=== PATIENT | female | born 1970 | race Caucasian/White ===

== ENCOUNTER 2022-03-19 14:59 | Emergency (ER) | payer OTHER, SELFPAY ==
[2022-03-19 15:05] VITALS: BP 140/81; PULSE 88; RESP 18; TEMP 36.7; O2SAT 99; BMI 21.9
--- NOTE | 2022-03-19 15:10 | DI.RAD.S_ITS ---
PROCEDURE: XR CHEST 1V INDICATIONS: chest pain TECHNIQUE: One view of the chest was acquired. COMPARISON: None. FINDINGS: Surgical changes and devices: None. Lungs and pleura: Lungs are clear. No pleural effusions or pneumothorax. Mediastinum: Mediastinal contours appear normal. Heart size is normal. Bones and chest wall: No suspicious bony lesions. Overlying soft tissues appear unremarkable. IMPRESSION: Normal for age, source of current chest pain symptoms is not seen. Dictated by: Aniket Moreira M.D. on 03/19/2022 at 15:53 Approved by: Aniket Moreira M.D. on 03/19/2022 at 15:53
[2022-03-19 16:05] LABS: Add Manual Diff / Slide Review NO; Basophils Absolute Auto 0 /uL (0-100); Basophils Percent Auto 0.4 % (0-2); Eosinophils Absolute Auto 100 /uL (0-450); Eosinophils Percent Auto 1.1 % (2-4); Hematocrit 40.5 % (36-46); Hemoglobin 14.1 g/dL (12.0-16.0); Lymphocytes Absolute Auto 1200 /uL (1100-4500); Mean Corpuscular Hemoglobin 32.1 PG (26-34); Mean Corpuscular Volume 91.9 fL (80-100); Monocytes Absolute Auto 400 /uL (0-900); Neutrophils Absolute Auto 4700 /uL (1500-7000); Neutrophils Percent Auto 73.5 % (50-75); Platelet Count 273 X10^3/uL (150-400); Red Cell Distribution Width 12.8 % (11.6-14.8); White Blood Cell Count 6.4 X10^3/uL (4.5-11.0)
[2022-03-19 16:16] LABS: Alanine Aminotransferase 22 IU/L (<35); Albumin 4.7 g/dL (3.5-5.0); Albumin Globulin Ratio 1.5 (1.0-2.8); Alkaline Phosphatase 72 U/L (38-126); Aspartate Aminotransferase 27 IU/L (14-36); BUN Creatinine Ratio 24.2 (6-22); Bilirubin Total 0.4 mg/dL (0.2-1.3); Blood Urea Nitrogen 15 mg/dL (7-17); Calcium 9.2 mg/dL (8.4-10.2); Carbon Dioxide 27 mmol/L (22-32); Chloride 105 mmol/L (98-107); Creatine Kinase 192 U/L (30-135); Estimated Glomerular Filt Rate > 60 mL/min (>60); Globulin 3.1 g/dL (1.7-4.1); Glucose 102 mg/dL (70-100); HEMOLYSIS < 15 (0-50); Lipase 78 U/L (23-300); Magnesium 2.2 mg/dL (1.6-2.3); Potassium 3.6 mmol/L (3.4-5.1); Sodium 141 mmol/L (137-145); Total Protein 7.8 g/dL (6.3-8.2)
[2022-03-19 16:26] LABS: Troponin I < 0.012 ng/mL (0.01-0.034)
[2022-03-19 16:30] LABS: CKMB % Relative Index 0.7 % (1.5-5.0); Creatine Kinase MB 1.42 ng/mL (<2.37)
[2022-03-19 16:36] VITALS: PULSE 70; RESP 27; O2SAT 100
--- NOTE | 2022-03-19 16:37 | ED.ARRPALP ---
HPI - Arrhythmia/Palpitations General Chief Complaint: Arrhythmia/Palpitations Stated Complaint: Heart fluttering, Almost passed out Time Seen by Provider: 03/19/22 16:25 Source: patient Mode of arrival: Ambulatory History of Present Illness HPI narrative: Patient is a 52-year-old female who many years has had occasional episodes with palpitation. She feels like recently it has become more pronounced. States that earlier today while she was at work she was squatting down. She is a statistical methods teacher. She stood up and became lightheaded. She denied any specific palpitations at that time. No chest pain. She did not pass out. She currently is not having symptoms. She states that her symptoms have become more pronounced specifically at night. He is never had chest pain or lightheaded in the past. Has not been evaluated for these symptoms prior to today. Review of Systems Constitutional Constitutional: Reports system reviewed and no additional complaints, except as documented Cardiovascular Cardiovascular: Reports system reviewed and no additional complaints, except as documented Respiratory Respiratory: Reports system reviewed and no additional complaints, except as documented Gastrointestinal Gastrointestinal: Reports system reviewed and no additional complaints, except as documented Neurologic Neurologic: Reports system reviewed and no additional complaints, except as documented Hematologic/Lymphatic On Anticoagulants: No Patient History Social History (Updated 03/19/22 @ 17:57 by Get Read DO) lives independently: Yes Exam Initial Vital Signs Initial Vital Signs: Vital Signs Temperature 98.1 F 03/19/22 15:05 Pulse Rate 88 03/19/22 15:05 Respiratory Rate 18 03/19/22 15:05 Blood Pressure 140/81 03/19/22 15:05 Pulse Oximetry 99 03/19/22 15:05 Oxygen Delivery Method 03/19/22 15:05 Const General: cooperative, comfortable and well developed [facility] Head: normal to inspection and normocephalic Resp Effort & Inspection: normal respiratory effort Auscultation: clear to auscultation bilaterally Cardio Rate: regular rate Rhythm: regular rhythm GI Inspection: normal to inspection Skin General: no rashes or lesions noted Neuro General: patient alert, patient awake and moves all extremities Extrem General: normal to inspection and capillary refill normal Course Orders Ordered: ED Orders 03/19/22 15:10 XR chest 1V Stat EKG-12 Lead Stat 03/19/22 15:45 Complete Blood Count AUTO DIFF Stat Comprehensive Metabolic Panel Stat Lipase Stat Magnesium Stat Troponin & CK Cardiac Panel Stat Vital Signs Vital signs: Vital Signs - 8 hr 03/19/22 15:05 03/19/22 16:36 03/19/22 16:41 Temperature 98.1 F Pulse Rate 88 70 69 Respiratory Rate 18 27 H 24 Blood Pressure 140/81 Pulse Oximetry 99 100 100 Oxygen Delivery Method Room Air 03/19/22 16:41 Temperature Pulse Rate Respiratory Rate Blood Pressure 120/55 L Pulse Oximetry Oxygen Delivery Method MDM - Arrhythmia/Palpitations Lab Data Attestation: I reviewed the patient's lab results. Result diagrams: 03/19/22 15:45 03/19/22 15:45 Labs: Lab Results 03/19/22 03/19/22 Range/Units 15:45 15:45 WBC 6.4 (4.5-11.0) X10^3/uL RBC 4.40 (4.0-5.2) X10^6/uL Hgb 14.1 (12.0-16.0) g/dL Hct 40.5 (36-46) % MCV 91.9 (80-100) fL MCH 32.1 (26-34) PG MCHC 35.0 (30-36) % RDW 12.8 (11.6-14.8) % Plt Count 273 (150-400) X10^3/uL Neut % (Auto) 73.5 (50-75) % Lymph % (Auto) 19.0 L (25-40) % [place] % (Auto) 6.0 (3-14) % Eos % (Auto) 1.1 L (2-4) % Baso % (Auto) 0.4 (0-2) % Neut # (Auto) 4700 (5319-8348) /uL Lymph # (Auto) 1200 (2665-2992) /uL [place] # (Auto) 400 (0-900) /uL Eos # (Auto) 100 (0-450) /uL Baso # (Auto) 0 (0-100) /uL Sodium 141 (137-145) mmol/L Potassium 3.6 (3.4-5.1) mmol/L Chloride 105 (98-107) mmol/L Carbon Dioxide 27 (22-32) mmol/L BUN 15 (7-17) mg/dL Creatinine 0.62 (0.52-1.04) mg/dL Estimated GFR > 60 (>60) mL/min BUN/Creatinine Ratio 24.2 H (6-22) Glucose 102 H (70-100) mg/dL Calcium 9.2 (8.4-10.2) mg/dL Magnesium 2.2 (1.6-2.3) mg/dL Total Bilirubin 0.4 (0.2-1.3) mg/dL AST 27 (14-36) IU/L ALT 22 (<35) IU/L Alkaline Phosphatase 72 (38-126) U/L Total Creatine Kinase 192 H (30-135) U/L CK-MB (CK-2) 1.42 (<2.37) ng/mL CK-MB (CK-2) Rel Index 0.7 L (1.5-5.0) % Troponin I < 0.012 (0.01-0.034) ng/mL Total Protein 7.8 (6.3-8.2) g/dL Albumin 4.7 (3.5-5.0) g/dL Globulin 3.1 (1.7-4.1) g/dL Albumin/Globulin Ratio 1.5 (1.0-2.8) Lipase 78 (23-300) U/L Imaging Data Chest x-ray: Radiologist's Impresson: [place] [address] XRay Report Signed Patient: Mishel Cordero MR#: [id number] : 1970 Acct:[id number] Age/Sex: 52 / F Date of Service: 03/19/22 Loc: ED Accession Number: [id number] ?? Procedure: XR chest 1V Ordering Provider: Get Read D.O. PROCEDURE:? XR CHEST 1V ? INDICATIONS:? chest pain ? TECHNIQUE:? One view of the chest was acquired.? ? COMPARISON:? None. ? FINDINGS:? ? Surgical changes and devices:? None.? ? Lungs and pleura:? Lungs are clear.? No pleural effusions or pneumothorax.? ? Mediastinum:? Mediastinal contours appear normal.? Heart size is normal.? ? Bones and chest wall:? No suspicious bony lesions.? Overlying soft tissues appear unremarkable.? ? IMPRESSION:? Normal for age, source of current chest pain symptoms is not seen. ? ? Dictated by: Aniket Moreira M.D. on 03/19/2022 at 15:53 ? ? Approved by: Aniket Moreira M.D. on 03/19/2022 at 15:53 ECG Data Attestation: I personally reviewed and interpreted this ECG as follows: Interpretation: Sinus rhythm Ventricular rate 87 Normal axis Normal QRS Normal QTC Nonspecific ST T wave changes MDM Narrative Medical decision making narrative: Patient's EKG today is unremarkable. Has had no ectopy since arrival here to the ER. Electrolytes are unremarkable. I suspect that the presyncopal episode that she had was because she was squatted down and stood up rather fast and she became lightheaded from this. She was not having any palpitations at the time that this happened. She is not currently having any palpitations. Informed her that she needed to contact her primary doctor to discuss the indications for Holter monitor. She was given return precautions and follow-up instructions. She expressed understanding and. Discharge Plan Departure Patient Disposition: Home Clinical Impression: Palpitations Activity Restrictions/Additional Instructions: I do recommend that you continue to take all of your medications as directed and contact your primary doctor for follow-up to discuss the indications for a Holter monitor. Return to the emergency department for any new or worsening symptoms. Referrals: Miscellaneous,MD Filomena [Primary Care Provider] - Visit Report Forms: Patient Portal/API
[2022-03-19 16:41] VITALS: BP 120/55; PULSE 69; RESP 24; O2SAT 100
== END 2022-03-19 16:47 | disposition home or self-care (01) ==
PROVIDERS: Emergency Provider Emergency Medicine
DX: R00.2 Palpitations (principal); R07.9 Chest pain, unspecified
CPT/HCPCS: 36415; 71045; 80053; 82550; 82553; 83690; 83735; 84484; 85025; 93005; 99283; 99284